=== PATIENT | female | born 1970 | race Caucasian/White ===

== ENCOUNTER 2020-05-26 08:49 | Day surgery (SDC) | payer OTHER ==
[~2020-05-26 08:49] MED LIST: SODIUM CHLORIDE 0.9% 1000 ML 1,000 ML IV SCH
--- NOTE | 2020-05-26 10:39 | Anesthesia Day of Surgery ---
Anesthesia Day of Surgery - Day of Surgery Patient Examined: Yes Patient H&P Reviewed: Yes Patient is NPO: Yes
--- NOTE | 2020-05-26 10:39 | Anesthesia Consultation ---
Anesthesia Consult and Med Hx - Airway Anesthetic Teeth Evaluation: Good ROM Head & Neck: Adequate Mental/Hyoid Distance: Adequate Mallampati Class: Class III Intubation Access Assessment: Possibly Difficult - Pulmonary Exam CTA: Yes - Cardiac Exam Cardiac Exam: RRR - Pre-Operative Health Status ASA Pre-Surgery Classification: ASA1 Proposed Anesthetic Plan: MAC - Pulmonary Hx Smoking: No Hx Respiratory Symptoms: No - Cardiovascular System Hx Hypertension: No Hx Heart Attack/AMI: No - Central Nervous System CVA: No - Gastrointestinal Hx Ulcer: Yes Hx Gastroesophageal Reflux Disease: Yes - Endocrine Hx Renal Disease: No Hx Liver Disease: No Hx Insulin Dependent Diabetes: No Hx Non-Insulin Dependent Diabetes: No Hx Thyroid Disease: No - Other Systems Hx Obesity: No
[2020-05-26] MEDS ORDERED: propofoL 200 MG/20 ML VIAL IV ONE (11:46)
--- NOTE | 2020-05-26 12:23 | Procedure Note ---
Date of procedure: 05/26/20 Pre-op diagnosis: Epigastric Pain Post-op diagnosis: other (No Peptic Ulcer disease was noted/Mild to Moderate Erosive Esophagitis/ Gastritis/ R/O Celiac disease) Procedure: EGD with Biopsy Anesthesia: MAC Surgeon: LYUDMILA RUELAS Estimated blood loss: minimal Pathology: list Specimen disposition: to lab Condition: stable Disposition: same day (Treat with PPI and prn Bentyl. Avoid aspirin and NSAID for 5 days, otherwise resume home medication. Follow up in 1 to 2 weeks ([phone]).)
--- NOTE | 2020-05-26 12:41 | Operative Report ---
PROCEDURE: Esophagogastroduodenoscopy with biopsy. INDICATIONS: This is a 50-year-old [place] female originally from [place], who has been having epigastric pain and discomfort. She gives no history of smoking or alcohol use. EGD was done to make sure that there was not any associated peptic ulcer disease. DESCRIPTION OF PROCEDURE: The procedure was done after getting informed consent with MAC anesthesia. Instrument was passed through the hypopharynx into the esophagus, which showed [id number] erosive esophagitis. Biopsy was done from the distal esophagus to assess for the severity of the erosive esophagitis. Additional biopsy was done from the gastric antrum and angular incisura to rule out for H. pylori. There was some antral gastritis present. Additional biopsy was also done from the gastric body to rule out for atrophic gastritis. The pylorus was patent. The duodenum in the first and second portion appeared normal. There was biopsy done from the second part to rule out for possible celiac disease. There was minimal bleeding associated with the procedure. No complications associated with the procedure. No peptic ulcer disease was noted. ASSESSMENT: Epigastric pain, no peptic ulcer disease noted. [id number] erosive esophagitis, gastritis, rule out celiac disease. PLAN: To treat the patient with PPI, have the patient avoid aspirin and aspirin-related products for the next few days and follow up in the office in 1-2 weeks' time. The procedure was done in the GI lab with assistance of the GI lab team, which included Rylie CORLEY; Declan bell and with assistance of anesthesia. JOB# [id number] JIGNESH/LATRICIA
--- NOTE | 2020-05-26 14:01 | Post Anesthesia Evaluation ---
- Post Anesthesia Evaluation Patient Participated: Yes Airway Patent: Yes Stable Respiratory Function: Yes Nausea/Vomiting: No Temp > 96.8F: Yes Pain Manageable: Yes Adequeate Hydration: Yes Anesthesia Complications: No
[2020-05-26 17:10] VITALS: BP 108/55
== END 2020-05-26 08:50 | disposition home or self-care (01) ==
LOC: EDBD 08:49 → GIO 08:49
DX: R10.13 Epigastric pain (principal); K21.0 Gastro-esophageal reflux disease with esophagitis; R14.0 Abdominal distension (gaseous); K31.89 Other diseases of stomach and duodenum; K29.70 Gastritis, unspecified, without bleeding; R63.4 Abnormal weight loss; Z79.899 Other long term (current) drug therapy; Z72.89 Other problems related to lifestyle
CPT/HCPCS: 43239; 88305; 88342; J2704; J7030